=== PATIENT | male | born 1990 | race Caucasian/White ===

== ENCOUNTER 2023-03-10 21:40 | Emergency (ER) | payer MEDICAID ==
[~2023-03-10] VITALS: Ht 167.6 cm; Wt 86.2 kg
[2023-03-10 21:53] VITALS: BP 148/100; PULSE 111; RESP 14; TEMP 98.5; O2SAT 100
[2023-03-11 00:13] LABS: CLARITY URINE CLEAR (CLEAR); COLOR URINE ORANGE (YELLOW); GLUCOSE URINE NEGATIVE (NEGATIVE); KETONES URINE NEGATIVE (NEGATIVE); LEUKOCYTE ESTERASE URINE TRACE (NEGATIVE); NITRITE URINE POSITIVE (NEGATIVE); OCCULT BLOOD URINE NEGATIVE (NEGATIVE); PH URINE 5.5 (4.5-8.0); PROTEIN URINE NEGATIVE (NEGATIVE); SPECIFIC GRAVITY URINE 1.007 (1.005-1.030)
[2023-03-11 00:14] LABS: BACTERIA URINE NONE SEEN; RBC URINE NONE SEEN /hpf (0-2); SQUAMOUS EPITHELIAL CELL URINE NONE SEEN /lpf (RARE/1+); YEAST URINE NONE SEEN
[2023-03-11] MEDS ORDERED: PYR200 MT (00:20)
[2023-03-11] MEDS ORDERED: DOXY100T2 MT (00:20)
[2023-03-11] MEDS ORDERED: DOXYCYCLINE HYCLATE 100MG CAPSULE PO ONE (00:30)
[2023-03-11 02:32] LABS: WBC URINE 0-2 /hpf (0-2)
[2023-03-15 04:07] LABS: CHLAMYDIA TRACHOMATIS NAA Negative (Negative); NEISSERIA GONORRHOEAE NAA Negative (Negative)
== END 2023-03-11 00:44 | disposition home or self-care (01) ==
LOC: ER 21:40
DX: N39.0 Urinary tract infection, site not specified (principal)
CPT/HCPCS: 81003; 87491; 87591; 99283

== ENCOUNTER 2023-04-08 23:15 | Emergency (ER) | payer MEDICAID ==
[~2023-04-08] VITALS: Ht 167.6 cm; Wt 89.6 kg
[~2023-04-08 23:15] MED LIST: DOXY100T2 MT; PYR200 MT
[2023-04-09 00:14] VITALS: BP 132/82; O2SAT 100
[2023-04-09] MEDS ORDERED: CEFTRIAXONE SODIUM 500 MG/VIAL IM ONE (00:30)
[2023-04-09 00:36] LABS: CLARITY URINE CLEAR (CLEAR); COLOR URINE RED (YELLOW); GLUCOSE URINE NEGATIVE (NEGATIVE); KETONES URINE NEGATIVE (NEGATIVE); LEUKOCYTE ESTERASE URINE 2+ (NEGATIVE); NITRITE URINE POSITIVE (NEGATIVE); OCCULT BLOOD URINE NEGATIVE (NEGATIVE); PROTEIN URINE 1+ (NEGATIVE); SPECIFIC GRAVITY URINE 1.023 (1.005-1.030)
[2023-04-09 00:39] LABS: SQUAMOUS EPITHELIAL CELL URINE NONE SEEN /lpf (RARE/1+); YEAST URINE NONE SEEN
[2023-04-09] MEDS ORDERED: CEFP200T13 MT (01:46)
[2023-04-09] MEDS ORDERED: DOXY150T5 MT (01:46)
[2023-04-09] MEDS ORDERED: CEFTRIAXONE SODIUM 500 MG/VIAL IM NR (02:00)
[2023-04-09 02:31] VITALS: PULSE 96; RESP 16; TEMP 98.5
[2023-04-09 03:18] LABS: WBC URINE 0-2 /hpf (0-2)
[2023-04-09 03:19] LABS: BACTERIA URINE TRACE; RBC URINE 0-2 /hpf (0-2)
== END 2023-04-09 02:32 | disposition home or self-care (01) ==
LOC: ER 23:15
DX: N50.812 Left testicular pain (principal); N50.811 Right testicular pain; R30.0 Dysuria
CPT/HCPCS: 99285; 81003; 93976; 76870; 96372; J0696; Z7610

== ENCOUNTER 2023-12-01 18:17 | Emergency (ER) | payer MEDICAID ==
[~2023-12-01] VITALS: Ht 167.6 cm; Wt 91.0 kg
[~2023-12-01 18:17] MED LIST changes: +CEFP200T13 MT; +DOXY150T5 MT
[2023-12-01 18:31] VITALS: O2SAT 99
[2023-12-01 19:45] LABS: CLARITY URINE CLEAR (CLEAR); COLOR URINE YELLOW (YELLOW); GLUCOSE URINE NEGATIVE (NEGATIVE); KETONES URINE NEGATIVE (NEGATIVE); LEUKOCYTE ESTERASE URINE NEGATIVE (NEGATIVE); NITRITE URINE NEGATIVE (NEGATIVE); OCCULT BLOOD URINE NEGATIVE (NEGATIVE); PH URINE 5.5 (4.5-8.0); PROTEIN URINE NEGATIVE (NEGATIVE); SPECIFIC GRAVITY URINE 1.012 (1.005-1.030); UROBILINOGEN URINE 0.2 E.U./dL (0.2-1.0)
[2023-12-01] MEDS ORDERED: PYR200 MT (19:59)
[2023-12-01 20:21] VITALS: BP 157/93; PULSE 96; RESP 15; TEMP 97.7
== END 2023-12-01 20:30 | disposition home or self-care (01) ==
LOC: ER 18:17
DX: R30.0 Dysuria (principal); Z87.440 Personal history of urinary (tract) infections
CPT/HCPCS: 81003; 99283

== ENCOUNTER 2024-03-13 20:18 | Emergency (ER) | payer MEDICAID ==
[~2024-03-13] VITALS: Ht 167.6 cm; Wt 82.0 kg
[~2024-03-13 20:18] MED LIST changes: -DOXY150T5 MT; +DOXY150T8 MT
[2024-03-13 20:22] VITALS: TEMP 98; O2SAT 99
[2024-03-13 21:57] LABS: CLARITY URINE CLEAR (CLEAR); COLOR URINE DARK YELLOW (YELLOW); GLUCOSE URINE NEGATIVE (NEGATIVE); KETONES URINE NEGATIVE (NEGATIVE); LEUKOCYTE ESTERASE URINE NEGATIVE (NEGATIVE); NITRITE URINE POSITIVE (NEGATIVE); OCCULT BLOOD URINE NEGATIVE (NEGATIVE); PH URINE 6.5 (4.5-8.0); PROTEIN URINE NEGATIVE (NEGATIVE); SPECIFIC GRAVITY URINE 1.009 (1.005-1.030); UROBILINOGEN URINE 0.2 E.U./dL (0.2-1.0)
[2024-03-13 22:05] LABS: BACTERIA URINE NONE SEEN; RBC URINE 0-2 /hpf (0-2); SQUAMOUS EPITHELIAL CELL URINE RARE /lpf (RARE/1+); WBC URINE 0-2 /hpf (0-2)
[2024-03-13] MEDS ORDERED: SULF1TAB48 MT (22:23)
[2024-03-13] MEDS ORDERED: KETOROLAC 30MG/ML VIAL IM ONE (22:45)
[2024-03-13 22:48] VITALS: BP 126/84; PULSE 86; RESP 16; O2SAT 98
== END 2024-03-13 22:49 | disposition home or self-care (01) ==
LOC: ER 20:18
DX: R30.0 Dysuria (principal); Z79.899 Other long term (current) drug therapy
CPT/HCPCS: 81003; 99283

== ENCOUNTER 2024-06-03 13:22 | Emergency (ER) | payer MEDICAID ==
[~2024-06-03] VITALS: Ht 167.6 cm; Wt 82.0 kg
[~2024-06-03 13:22] MED LIST changes: +SULF1TAB48 MT
[2024-06-03 13:27] VITALS: O2SAT 100
[2024-06-03 13:30] VITALS: BP 123/67; PULSE 88; RESP 18; TEMP 97.8; O2SAT 99
[2024-06-03] MEDS ORDERED: AMOX1TAB16 MT (14:04)
[2024-06-03] MEDS ORDERED: IBUP-2029 MT (14:04)
== END 2024-06-03 14:30 | disposition home or self-care (01) ==
LOC: ER 13:22
DX: S60.512A Abrasion of left hand, initial encounter (principal); W55.03XA Scratched by cat, initial encounter; Y93.89 Activity, other specified; Y92.89 Other specified places as the place of occurrence of the external cause; Y99.8 Other external cause status; Z87.440 Personal history of urinary (tract) infections
CPT/HCPCS: 99283

== ENCOUNTER 2024-11-27 09:48 | Emergency (ER) | payer MEDICAID ==
[~2024-11-27] VITALS: Ht 167.6 cm; Wt 82.0 kg
[~2024-11-27 09:48] MED LIST changes: +AMOX1TAB16 MT; +IBUP-2029 MT
[2024-11-27 09:53] VITALS: O2SAT 100
[2024-11-27] MEDS ORDERED: BO1 TP (10:29)
[2024-11-27] MEDS ORDERED: TC1C15 TP (10:29)
[2024-11-27 10:42] VITALS: BP 111/67; PULSE 73; RESP 16; TEMP 36.7; O2SAT 98
== END 2024-11-27 10:46 | disposition home or self-care (01) ==
LOC: ER 09:48
DX: L03.031 Cellulitis of right toe (principal); Z79.899 Other long term (current) drug therapy
CPT/HCPCS: 99283